=== PATIENT | male | born 1990 | race Caucasian/White ===

== ENCOUNTER → 2020-04-02 17:11 | Outpatient (BNVA) | payer OTHER, SELFPAY | PROVIDERS: Family Provider Nurse Practitioner Family; PCP Nurse Practitioner Family; Visit Provider Nurse Practitioner | DX: U07.1 COVID-19 (principal) | CPT/HCPCS: 87635 ==

== ENCOUNTER 2020-06-02 17:53 | Outpatient (CLI) | payer OTHER, SELFPAY ==
[2020-06-04 02:38] LABS: Coronavirus Lab Test PTC Negative
== END 2020-06-02 17:54 | disposition home or self-care (01) ==
LOC: LAB 17:54
PROVIDERS: Family Provider Nurse Practitioner Family; PCP Nurse Practitioner Family; Visit Provider Family Medicine
DX: Z20.828 Contact with and (suspected) exposure to other viral communicable diseases (principal)
CPT/HCPCS: 87635